=== PATIENT | male | born 1945 | race Caucasian/White ===

== ENCOUNTER 2016-05-09 07:49 | Day surgery (SDC) | payer MEDICARE, BC ==
[~2016-05-09] VITALS: Ht 177.8 cm; Wt 89.0 kg
--- NOTE | 2016-05-10 06:13 | OR ---
ADMIT: 05/09/2016 RM/LOC: [facility] MR#: [id number] [facility]#: [id number] [address] [id number] [place] [place] [address] [place] [id number] Operative/Delivery Room Report SEX: M AGE: 70 : 1945 SURGERY DATE: 05/09/2016 SURGEON: Pedro Easley MD PROCEDURE: Total colonoscopy. PREOPERATIVE DIAGNOSIS: Cecal polyp. POSTOPERATIVE DIAGNOSIS: Left-sided diverticulosis. DESCRIPTION OF THE PROCEDURE: The patient was brought to procedure room placed in left lateral decubitus position. Informed consent had been obtained preoperatively. The risks and benefits including, but not limited to, perforation, sedation, bleeding were discussed with the patient and agreed upon. All questions were answered, alternatives discussed. The patient agreed. Monitored anesthesia care was provided by Juwan Schmitz CRNA with propofol and Alfenta. Anal inspection, digital examination revealed no abnormalities or obstructing masses. Prostate was normal in size, texture, and contour without nodularity. Olympus videoendoscope, model CF-H180AL was inserted into the rectum, advanced to cecum without difficulty. The ileocecal valve and appendiceal orifice were identified. The valve could not be cannulated due to position. Very close attention was paid to inspection of the cecum where a polyp had been previously removed, however, there was no evidence of any recurrence. Scope was then withdrawn through a normal ascending, transverse colon, descending and sigmoid. There were scattered diverticula. The rectum was normal. Scope was retroflexed. The anal verge appeared normal. The patient tolerated the procedure well. No complications were expected. There was no blood loss during the procedure. He will call me if he has any postoperative problems. Otherwise, I recommend he have repeat colonoscopy in 5 years unless signs or symptoms develop in the interval. Pedro Easley MD/ dianna JOB #: [id number] CC: Pedro Easley, Attending Physician Krish Louise, Family Physician Krish Louise MD
== END 2016-05-09 10:30 | disposition home or self-care (01) ==
LOC: SSS 07:49
PROC: 0DJD8ZZ Inspection of Lower Intestinal Tract, Via Natural or Artificial Opening Endoscopic (ICD-10-PCS; principal; 2016-05-09)
DX: K57.30 Diverticulosis of large intestine without perforation or abscess without bleeding (principal); I10 Essential (primary) hypertension; Z79.899 Other long term (current) drug therapy; Z90.49 Acquired absence of other specified parts of digestive tract